=== PATIENT | female | born 1975 ===

== ENCOUNTER 2022-02-08 10:27 | Outpatient (CLI) | payer MEDICAID, SELFPAY ==
--- NOTE | 2022-02-08 10:15 | RT.EKG_ITS ---
APPROVED REPORT Exam: Resting ECG Reason for Exam: Baseline needed, NPW Patient Location: O HR:51 bpm ECG Measurements Heart Rate 51 AXIS GA 168 P 45 QRSd 115 QRS 74 QT 427 T 75 QTc 394 Conclusion Sinus rhythm...normal P axis, V-rate 50- 99 Incomplete right bundle branch block...QRSd >112, terminal axis(90,270)
== END 2022-02-08 10:28 | disposition home or self-care (01) ==
LOC: DI.CARD 10:28
PROVIDERS: PCP Neuromusculoskeletal Medicine & OMM; Visit Provider Internal Medicine Cardiovascular Disease
DX: J44.9 Chronic obstructive pulmonary disease, unspecified (principal); Z86.79 Personal history of other diseases of the circulatory system; R94.31 Abnormal electrocardiogram [ECG] [EKG]; I45.10 Unspecified right bundle-branch block
CPT/HCPCS: 93010